=== PATIENT | female | born 2000 | race Two or more races ===

== ENCOUNTER 2018-02-23 06:36 | Emergency (ER) | payer SELFPAY ==
[2018-02-23 06:44] VITALS: BP 121/75; PULSE 86; TEMP 98.2; BMI 26.2
[2018-02-23] MEDS ORDERED: ONDANSETRON *ODT* 4 MG TABLET SL ONE (06:46)
[2018-02-23] MEDS ORDERED: FAMOTIDINE 20 MG TABLET PO ONE (06:46)
--- NOTE | 2018-02-23 06:47 | PDOC ---
History of Present Illness - General Chief Complaint: Vomiting/Diarrhea Stated Complaint: N/V/D Time Seen by Provider: 02/23/18 06:44 - History of Present Illness Initial Comments: 02/23/18 06:46 17yoF no PMHx from the DR carter w/ n/v/d x 6 hours. No bleeding, no bile, no fever. No other sick contacts at home. No hx of abd surgery. Past History - Past Medical History Allergies/Adverse Reactions: Allergies Allergy/AdvReac Type Severity Reaction Status Date / Time No Known Allergies Allergy Verified 02/23/18 06:38 Home Medications: Ambulatory Orders NK [No Known Home Medication] 02/23/18 COPD: No - Immunization History Immunization Up to Date: Yes - Suicide/Smoking/Psychosocial Hx Smoking History: Never smoked Hx Alcohol Use: No Drug/Substance Use Hx: No Substance Use Type: None Review of Systems - Review of Systems All Other Systems: Reviewed and Negative *Physical Exam - Vital Signs Last Vital Signs Temp Pulse Resp BP Pulse Ox 98.2 F 86 18 121/75 99 02/23/18 06:37 02/23/18 06:37 02/23/18 06:37 02/23/18 06:37 02/23/18 06:37 - Physical Exam Comments: 02/23/18 06:48 NAD MMM RRR CTABL soft NTND no rash A&O x 3 Moderate Sedation - Procedure Monitoring Vital Signs: Vital Signs Temp Pulse Resp BP Pulse Ox 98.2 F 86 18 121/75 99 02/23/18 06:37 02/23/18 06:37 02/23/18 06:37 02/23/18 06:37 02/23/18 06:37 Medical Decision Making - Medical Decision Making 02/23/18 06:48 17yoF no PMH/PSHx presnets w/ 6h of GI symptoms without red flags. - UPT - zofran, pepcid - PO challenge and DC. *DC/Admit/Observation/Transfer Diagnosis at time of Disposition: Nausea and vomiting - Discharge Dispostion Disposition: HOME Condition at time of disposition: Stable Decision to Admit order: No - Referrals - Patient Instructions Additional Instructions: Take zantac 75mg 1 tab 2x daily for 14 days Take TUMS for extra stomach acid. Drink plenty of fluids. Mix water and gatorade 1/2 and 1/2. Soup bland food like plain rice, plain chicken, bread, crackers, bananas, apples. Advance diest as tolerated as you feel better. Return to ER for fainting, fever over 101, blood in vomit or stool. - Post Discharge Activity
[2018-02-23] MEDS ORDERED: FAMOTIDINE 20 MG TABLET ONE (07:05)
[2018-02-23] MEDS ORDERED: ONDANSETRON *ODT* 4 MG TABLET ONE (07:05)
--- NOTE | 2018-02-23 07:27 | PDOC ---
*Physical Exam - Vital Signs Last Vital Signs Temp Pulse Resp BP Pulse Ox 98.2 F 86 18 121/75 99 02/23/18 06:37 02/23/18 06:37 02/23/18 06:37 02/23/18 06:37 02/23/18 06:37 - Physical Exam Comments: 02/23/18 07:26 "GENERAL: Awake, alert, and fully oriented, in no acute distress. HEAD: No signs of trauma EYES: PERRLA, EOMI, sclera anicteric, conjunctiva clear ENT: Auricles normal inspection, hearing grossly normal, nares patent, oropharynx clear without exudates. Moist mucosa NECK: Nontender, no stepoffs, Normal ROM, supple, no lymphadenopathy, JVD, or masses LUNGS: Breath sounds equal, clear to auscultation bilaterally. No wheezes, and no crackles HEART: Regular rate and rhythm, normal S1 and S2, no murmurs, rubs or gallops ABDOMEN: Soft, nontender, normoactive bowel sounds. No guarding, no rebound. No masses EXTREMITIES: Normal range of motion, no edema. No clubbing or cyanosis. No cords, erythema, or tenderness NEUROLOGICAL: Cranial nerves II through XII intact. 5/5 strength and sensation in all extremities, Normal speech, normal gait, normal cerebellar function SKIN: Warm, Dry, normal turgor, no rashes or lesions noted. " ED Treatment Course - Medications Given in the ED: ED Medications Discontinued Medications Generic Name Dose Route Start Last Admin Trade Name Freq PRN Reason Stop Dose Admin Famotidine 20 mg 02/23/18 06:46 02/23/18 07:08 Pepcid - PO 02/23/18 06:47 20 mg ONCE ONE Administration Ondansetron HCl 4 mg 02/23/18 06:46 02/23/18 07:08 Zofran Odt - SL 02/23/18 06:47 4 mg ONCE ONE Administration Medical Decision Making - Medical Decision Making 02/23/18 07:26 Sign out received at 7am. 17 yo F with no PMH presenting with N/V/D since this morning. Benign exam, no abdominal tenderness. Pt successfully PO'ed after pepcid + zofran. Pt is well appearing, with normal vitals. Clinically stable for DC at this time. I discussed the physical exam findings, ancillary test results and final diagnoses with the patient. I answered all of the patient's questions. The patient was satisfied with the care received and felt comfortable with the discharge plan and treatment plan. The patient agrees to follow up with the primary care physician within 24-72 hours. *DC/Admit/Observation/Transfer Diagnosis at time of Disposition: Nausea and vomiting - Discharge Dispostion Disposition: HOME Condition at time of disposition: Stable - Referrals - Patient Instructions Additional Instructions: Take zantac 75mg 1 tab 2x daily for 14 days Take TUMS for extra stomach acid. Drink plenty of fluids. Mix water and gatorade 1/2 and 2. Soup bland food like plain rice, plain chicken, bread, crackers, bananas, apples. Advance diest as tolerated as you feel better. Return to ER for fainting, fever over 101, blood in vomit or stool. - Post Discharge Activity Forms/Work/School Notes: Back to Work - Attestations Physician Attestion: 02/23/18 07:27 I, Dr. Roland Wilson MD, attest that this document has been prepared under my direction and personally reviewed by me in its entirety. I further attest, that it accurately reflects all work, treatment, procedures and medical decision -making performed by me.
[2018-02-23] MEDS ORDERED: METOCLOPRAMIDE HCL INJECTION 10 MG/2 ML VIAL IM ONE (07:39)
== END 2018-02-23 08:44 | disposition home or self-care (01) ==
LOC: FER 06:36
PROC: 3E023GC Introduction of Other Therapeutic Substance into Muscle, Percutaneous Approach (ICD-10-PCS; principal; 2018-02-23)
DX: R11.2 Nausea with vomiting, unspecified (principal)
CPT/HCPCS: 99281-25; Q0162

== ENCOUNTER 2021-01-28 09:25 | Inpatient (IN) | payer OTHER ==
[2021-01-28 10:52] LABS: BASO % 1.2 % (0-2.0); EOS % 1.2 % (0-4.5); HEMATOCRIT 32.2 % (32.4-45.2); HEMOGLOBIN 11.2 GM/dL (10.7-15.3); LYMPH % 16.6 % (8-40); MCH 33.6 pg (25.7-33.7); MCHC 34.9 g/dl (32.0-36.0); MEAN CELL VOLUME 96.3 fl (80-96); MEAN PLT VOLUME 7.6 fl (7.5-11.1); PLATELET COUNT 361 K/MM3 (134-434); RBC 3.34 M/mm3 (3.60-5.2); RDW 13.6 % (11.6-15.6); WHITE BLOOD COUNT 10.5 K/mm3 (4.0-10.0)
[2021-01-28 11:00] LABS: INR 1.01 (0.83-1.09); PROTHROMBIN TIME (PATIENT) 12.2 SEC (9.7-13.0)
[2021-01-28] MEDS ORDERED: DINOPROSTONE 10 MG VAGINAL SUPPOSITORY VG ONE (11:00)
[2021-01-28 11:03] LABS: ACTIVATED PTT 28.4 SECONDS (25.2-36.5)
[2021-01-28 11:15] LABS: BLOOD UREA NITROGEN 8.2 mg/dL (7-18)
[2021-01-28 11:16] VITALS: BMI 38.9
[2021-01-28 11:18] LABS: CREATININE 0.6 mg/dL (0.55-1.3)
[2021-01-28 12:53] LABS: ANISOCYTOSIS 0; MACROCYTOSIS 1+; PLATELET ESTIMATE NORMAL
[2021-01-28] MEDS ORDERED: BUTORPHANOL TARTRATE 1 MG/ML VIAL IVPB PRN (15:41)
[2021-01-28] MEDS: ELECTROLYTE-148 SOLN 1,000 ML IV SCH ×2 (16:06→23:00)
[2021-01-28] MEDS ORDERED: OXYTOCIN 30 UNITS in 0.9% NS 30 UNIT/500 ML INFUS.BAG IVPB SCH (21:30)
[2021-01-28] MEDS ORDERED: FENTANYL/BUPIVACAINE/NS/PF - PCEA - 50 ML DISP.SYRIN EP ONE (22:04)
[2021-01-28] MEDS ORDERED: PCA PUMP NR ONE (22:04)
[2021-01-28] MEDS ORDERED: NALOXONE HCL 0.4 MG/ML VIAL IVPUSH PRN (22:07)
[2021-01-28] MEDS ORDERED: FENTANYL/BUPIVACAINE/NS/PF - PCEA - 50 ML DISP.SYRIN EP SCH (22:15)
[2021-01-28] MEDS ORDERED: OXYTOCIN 30 UNITS in 0.9% NS 30 UNIT/500 ML INFUS.BAG IVPB ONE (23:12)
[2021-01-28] MEDS ORDERED: OXYTOCIN 20 UNITS in 0.9% NS 20 UNIT/1,000 ML INFUS.BAG IV ONE (23:13)
[2021-01-29] MEDS ORDERED: PCA PUMP NR ONE (02:16)
[2021-01-29] MEDS ORDERED: FENTANYL/BUPIVACAINE/NS/PF - PCEA - 50 ML DISP.SYRIN EP ONE (02:16)
[2021-01-29] MEDS ORDERED: BENZOCAINE 20% 57 GM BOTTLE TP PRN (05:16)
[2021-01-29] MEDS ORDERED: diphenhydrAMINE HCL 25 MG CAPSULE (FP) PO PRN (05:16)
[2021-01-29] MEDS ORDERED: METHYLERGONOVINE MALEATE 0.2 MG/1 ML AMP IM PRN (05:16)
[2021-01-29] MEDS ORDERED: WITCH HAZEL 50% (TUCKS) 40 PAD/JAR PAD TP PRN (05:16)
[2021-01-29] MEDS ORDERED: IBUPROFEN 800 MG/8 ML IJ IVPB PRN (05:16)
[2021-01-29] MEDS ORDERED: BENZOCAINE 28 GM HEMORRHOIDAL OINTMENT PR PRN (05:16)
[2021-01-29] MEDS ORDERED: OXYTOCIN 20 UNITS in 0.9% NS 20 UNIT/1,000 ML INFUS.BAG IV SCH (05:30)
[2021-01-29] MEDS ORDERED: LIDO 2%/EPI 1:200000 PRESRVFRE (20 ML SDVIAL) ONE (05:33)
[2021-01-29] MEDS ORDERED: OXYTOCIN 20 UNITS in 0.9% NS 20 UNIT/1,000 ML INFUS.BAG IV ONE (05:34)
[2021-01-29] MEDS ORDERED: ceFAZolin SODIUM 1 GM VIAL ONE (05:49)
[2021-01-29] MEDS ORDERED: MIDAZOLAM HCL 2 MG/2 ML SINGLE DOSE VIAL ONE ×2 (05:56→06:05)
[2021-01-29] MEDS ORDERED: PHENYLEPHRINE HCL 10 MG/1 ML SINGLE DOSE VIAL ONE (06:00)
[2021-01-29] MEDS ORDERED: ONDANSETRON 4 MG/2 ML VIAL ONE (06:05)
[2021-01-29 06:53] LABS: CORD BASE EXCESS -3.8 mmol/L (0-2); CORD BASE EXCESS -6.5 mmol/L (0-2); CORD HCO3 18.2 mmHg (20-29); CORD HCO3 21.4 mmHg (20-29); CORD PCO2 34.2 mmHg (30-78); CORD PCO2 39.7 mmHg (30-78); CORD pH 7.344 (7.14-7.44); CORD pH 7.349 (7.14-7.44)
[2021-01-29] MEDS ORDERED: IBUPROFEN 800 MG/8 ML IJ IVPB ONE (07:23)
[2021-01-29] MEDS: PRENATAL VITAMINS W/ FOLIC ACID TABLET (FP) PO SCH (09:19)
[2021-01-29] MEDS: ACETAMINOPHEN 325 MG TABLET (FP) PO PRN ×2 (16:24→21:26)
[2021-01-29] MEDS: IBUPROFEN 600 MG TABLET (FP) PO PRN ×2 (16:25→21:26)
[2021-01-29] MEDS: SIMETHICONE 80 MG TAB.CHEW (FP) PO PRN (21:26)
[2021-01-30] MEDS ORDERED: oxyCODONE HCL 5 MG TABLET PO PRN (05:16)
[2021-01-30] MEDS ORDERED: BISACODYL 10 MG SUPP.RECT PR PRN (05:16)
[2021-01-30] MEDS: SIMETHICONE 80 MG TAB.CHEW (FP) PO PRN ×3 (06:27→19:37)
[2021-01-30] MEDS: oxyCODONE HCL 5 MG TABLET PO PRN ×3 (06:28→19:38)
[2021-01-30] MEDS: IBUPROFEN 600 MG TABLET (FP) PO PRN ×3 (06:29→19:38)
[2021-01-30] MEDS: ACETAMINOPHEN 325 MG TABLET (FP) PO PRN ×3 (06:32→19:40)
[2021-01-30 07:58] LABS: HEMATOCRIT 26.7 % (32.4-45.2); HEMOGLOBIN 8.9 GM/dL (10.7-15.3); MCH 32.9 pg (25.7-33.7); MCHC 33.4 g/dl (32.0-36.0); MEAN CELL VOLUME 98.5 fl (80-96); MEAN PLT VOLUME 7.5 fl (7.5-11.1); PLATELET COUNT 314 K/MM3 (134-434); RBC 2.71 M/mm3 (3.60-5.2); RDW 13.7 % (11.6-15.6); WHITE BLOOD COUNT 11.3 K/mm3 (4.0-10.0)
[2021-01-30] MEDS: PRENATAL VITAMINS W/ FOLIC ACID TABLET (FP) PO SCH (10:03)
[2021-01-31] MEDS: ACETAMINOPHEN 325 MG TABLET (FP) PO PRN ×2 (03:27→09:03)
[2021-01-31] MEDS: IBUPROFEN 600 MG TABLET (FP) PO PRN ×2 (03:28→12:58)
[2021-01-31] MEDS: oxyCODONE HCL 5 MG TABLET PO PRN ×3 (03:28→12:58)
[2021-01-31] MEDS: SIMETHICONE 80 MG TAB.CHEW (FP) PO PRN ×3 (03:29→12:58)
[2021-01-31] MEDS: PRENATAL VITAMINS W/ FOLIC ACID TABLET (FP) PO SCH (09:02)
[2021-01-31 14:36] VITALS: BP 112/74; PULSE 86; TEMP 98.6
[2021-01-31] MEDS ORDERED: SENNOSIDES/DOCUSATE COMBO (SENNA PLUS) TABLET (UD) PO PRN (22:00)
== END 2021-01-31 15:30 | disposition home or self-care (01) | DRG 540 ==
LOC: JLDR 09:25 → J3W 01-29 07:55
PROVIDERS: ADMIT Obstetrics & Gynecology; ATTEND Obstetrics & Gynecology
PROC: 3E0P7VZ Introduction of Hormone into Female Reproductive, Via Natural or Artificial Opening (ICD-10-PCS; 2021-01-28)
PROC: 10D00Z1 Extraction of Products of Conception, Low, Open Approach (ICD-10-PCS; principal; 2021-01-29)
DX: O62.1 Secondary uterine inertia (principal); O76 Abnormality in fetal heart rate and rhythm complicating labor and delivery; O48.0 Post-term pregnancy; Z3A.40 40 weeks gestation of pregnancy; Z37.0 Single live birth
CPT/HCPCS: 36415; 36600; 80048; 82803; 85025; 85027; 85610; 85730; 86780; 86850; 86900; 86901; 88307-TC; C9803; U0003; U0005

== ENCOUNTER 2022-05-20 10:50 | Inpatient (IN) | payer OTHER ==
[2022-05-20] MEDS ORDERED: CITRIC ACID/SODIUM CITRATE 30 ML UNIT-DOSE CUP PO ONE (11:00)
[2022-05-20 12:44] VITALS: BMI 33.3
[2022-05-20] MEDS ORDERED: OXYTOCIN 20 UNITS in 0.9% NS 40 UNIT/2,000 ML INFUS.BAG IV ONE (12:53)
[2022-05-20] MEDS ORDERED: morphine SULFATE/PF 1 MG/2 ML (2cc Syringe - QUVA) ONE (12:56)
[2022-05-20] MEDS ORDERED: PHENYLEPHRINE HCL 10 MG/1 ML SINGLE DOSE VIAL ONE (12:56)
[2022-05-20] MEDS ORDERED: ceFAZolin SODIUM 1 GM VIAL ONE (12:56)
[2022-05-20] MEDS ORDERED: OXYTOCIN 10 UNITS/ML VIAL ONE (12:56)
[2022-05-20] MEDS ORDERED: ELECTROLYTE-148 SOLN 500 ML IV ONE (13:30)
[2022-05-20] MEDS ORDERED: ONDANSETRON 4 MG/2 ML VIAL ONE (13:36)
[2022-05-20] MEDS ORDERED: DEXAMETHASONE SOD PHOSPHATE 4 MG/1 ML VIAL ONE (13:36)
[2022-05-20] MEDS ORDERED: ELECTROLYTE-148 SOLN 1,000 ML IV SCH (14:00)
[2022-05-20] MEDS ORDERED: OXYTOCIN 20 UNITS in 0.9% NS 20 UNIT/1,000 ML INFUS.BAG IV SCH (14:30)
[2022-05-20] MEDS ORDERED: ONDANSETRON 4 MG/2 ML VIAL IVPUSH PRN (14:41)
[2022-05-20] MEDS ORDERED: SODIUM CHLORIDE 1,000 ML IV SCH (14:45)
[2022-05-20] MEDS ORDERED: IBUPROFEN 800 MG/8 ML IJ IVPB ONE (14:54)
[2022-05-20] MEDS ORDERED: ACETAMINOPHEN INJECTION 100 ML IVPB ONE (14:59)
[2022-05-20] MEDS: ACETAMINOPHEN 1000 MG/100 ML BAG IVPB SCH ×2 (15:05→22:28)
[2022-05-20] MEDS: KETOROLAC TROMETHAMINE 30 MG/1 ML VIAL IVPB PRN (19:04)
[2022-05-20 22:04] LABS: BASO % 0.1 % (0-2.0); EOS % 0.1 % (0-4.5); HEMOGLOBIN 9.9 GM/dL (10.7-15.3); LYMPH % 10.3 % (8-40); MCH 29.1 pg (25.7-33.7); MCHC 33.1 g/dl (32.0-36.0); MEAN PLT VOLUME 7.8 fl (7.5-11.1); MONO % 3.1 % (3.8-10.2); NEUT % 86.4 % (42.8-82.8); PLATELET COUNT 363 10^3/uL (134-434); RBC 3.41 M/mm3 (3.60-5.2); RDW 15.1 % (11.6-15.6); WHITE BLOOD COUNT 15.8 K/mm3 (4.0-10.0)
[2022-05-21] MEDS: oxyCODONE HCL 5 MG TABLET PO PRN ×5 (03:46→22:48)
[2022-05-21] MEDS: ACETAMINOPHEN 1000 MG/100 ML BAG IVPB SCH ×2 (05:25→08:00)
[2022-05-21] MEDS: KETOROLAC TROMETHAMINE 30 MG/1 ML VIAL IVPB PRN (06:12)
[2022-05-21 08:08] LABS: BASO % 0.4 % (0-2.0); HEMOGLOBIN 9.3 GM/dL (10.7-15.3); LYMPH % 15.8 % (8-40); MCH 29.2 pg (25.7-33.7); MCHC 33.3 g/dl (32.0-36.0); MEAN CELL VOLUME 87.6 fl (80-96); MEAN PLT VOLUME 7.7 fl (7.5-11.1); MONO % 8.3 % (3.8-10.2); NEUT % 75.5 % (42.8-82.8); PLATELET COUNT 357 10^3/uL (134-434); WHITE BLOOD COUNT 15.2 K/mm3 (4.0-10.0)
[2022-05-22] MEDS: oxyCODONE HCL 5 MG TABLET PO PRN ×3 (03:54→13:19)
[2022-05-22] MEDS ORDERED: BISACODYL 10 MG SUPP.RECT PR ONE (09:50)
[2022-05-22] MEDS ORDERED: ACETAMINOPHEN 325 MG TABLET (FP) PO PRN (09:50)
[2022-05-22] MEDS: IBUPROFEN 600 MG TABLET (FP) PO PRN (19:20)
[2022-05-23] MEDS: IBUPROFEN 600 MG TABLET (FP) PO PRN ×2 (03:00→08:21)
[2022-05-23 08:43] LABS: BASO % 0.3 % (0-2.0); EOS % 2.8 % (0-4.5); HEMATOCRIT 27.7 % (32.4-45.2); HEMOGLOBIN 9.1 GM/dL (10.7-15.3); LYMPH % 31.3 % (8-40); MCH 29.3 pg (25.7-33.7); MCHC 32.9 g/dl (32.0-36.0); MEAN CELL VOLUME 88.9 fl (80-96); MEAN PLT VOLUME 7.6 fl (7.5-11.1); MONO % 9.3 % (3.8-10.2); NEUT % 56.3 % (42.8-82.8); PLATELET COUNT 323 10^3/uL (134-434); RBC 3.12 M/mm3 (3.60-5.2); RDW 15.1 % (11.6-15.6); WHITE BLOOD COUNT 9.4 K/mm3 (4.0-10.0)
[2022-05-23 09:34] VITALS: BP 129/70; PULSE 70; RESP 16; TEMP 98.2
== END 2022-05-23 13:04 | disposition home or self-care (01) | DRG 540 ==
LOC: JLDR 10:50 → J3W 17:18
PROVIDERS: ADMIT Obstetrics & Gynecology; ATTEND Obstetrics & Gynecology
PROC: 10D00Z1 Extraction of Products of Conception, Low, Open Approach (ICD-10-PCS; principal; 2022-05-20)
DX: O34.219 Maternal care for unspecified type scar from previous cesarean delivery (principal); Z3A.39 39 weeks gestation of pregnancy; Z37.0 Single live birth
CPT/HCPCS: 36415; 85025; 88307-TC